=== PATIENT | female | born 1980 | race American Indian/Alaskan Native ===

== ENCOUNTER 2020-02-21 08:35 | Outpatient (CLI) | payer OTHER | END 2020-02-21 09:17 | disposition home or self-care (01) | LOC: NST 08:35 | PROVIDERS: ATTEND Obstetrics & Gynecology | DX: Z34.83 Encounter for supervision of other normal pregnancy, third trimester (principal) ==

== ENCOUNTER 2020-02-26 07:24 | Inpatient (IN) | payer OTHER ==
[~2020-02-26] VITALS: Ht 162.6 cm; Wt 92.1 kg
[2020-02-26] MEDS ORDERED: MACROBID 100 M100 MG PO (11:38)
[2020-02-26] MEDS ORDERED: PRENATAL CAPLE1 EAC1 PO (11:38)
[2020-03-02] MEDS ORDERED: COLACE100 MG PO (11:06)
[2020-03-02] MEDS ORDERED: DERMOPLAST PAIN78 GM TOP (11:06)
[2020-03-02] MEDS ORDERED: ACETAMINOPHEN325 M1 PO (11:06)
== END 2020-03-02 11:25 | disposition home or self-care (01) | DRG 807 ==
LOC: NST 07:24 → LDR 08:47 → SURG-SUITE 02-27 16:05
PROVIDERS: ADMIT Obstetrics & Gynecology; ATTEND Obstetrics & Gynecology
PROC: 3E0P7VZ Introduction of Hormone into Female Reproductive, Via Natural or Artificial Opening (ICD-10-PCS; 2020-02-26)
PROC: 4A1HXFZ Monitoring of Products of Conception, Cardiac Rhythm, External Approach (ICD-10-PCS; 2020-02-26)
PROC: 10E0XZZ Delivery of Products of Conception, External Approach (ICD-10-PCS; principal; 2020-02-27)
PROC: 0W8NXZZ Division of Female Perineum, External Approach (ICD-10-PCS; 2020-02-27)
PROC: 10907ZC Drainage of Amniotic Fluid, Therapeutic from Products of Conception, Via Natural or Artificial Opening (ICD-10-PCS; 2020-02-27)
PROC: 3E033VJ Introduction of Other Hormone into Peripheral Vein, Percutaneous Approach (ICD-10-PCS; 2020-02-27)
PROC: 30233N1 Transfusion of Nonautologous Red Blood Cells into Peripheral Vein, Percutaneous Approach (ICD-10-PCS; 2020-02-29)
DX: O41.03X0 Oligohydramnios, third trimester, not applicable or unspecified (principal); Z37.0 Single live birth; O90.81 Anemia of the puerperium; D64.89 Other specified anemias; Z3A.38 38 weeks gestation of pregnancy; Z20.828 Contact with and (suspected) exposure to other viral communicable diseases